=== PATIENT | female | born 1990 | race Caucasian/White ===

== ENCOUNTER 2017-09-11 13:53 | Outpatient (CLI) | END 2017-09-11 18:25 | disposition home or self-care (01) ==

== ENCOUNTER 2017-09-11 19:56 | Outpatient (CLI) | END 2017-09-11 20:50 | disposition home or self-care (01) ==

== ENCOUNTER 2017-09-14 14:10 | Inpatient (IN) | END 2017-09-17 14:10 | disposition home or self-care (01) | DRG 767 ==